=== PATIENT | male | born 1945 | race Caucasian/White ===

== ENCOUNTER 2017-04-19 12:56 | Outpatient (RCR) | payer MEDICARE, OTHER ==
[2014-10-14 09:09] VITALS: Ht 177.8 cm; Wt 104.3 kg
[2017-04-18 12:59] VITALS: BP 140/63
[2017-04-18 13:04] LABS: PLATELET COUNT, AUTOMATED 190 K/uL (150-450)
[~2017-04-19] VITALS: Ht 177.8 cm; Wt 104.3 kg
[~2017-04-19 12:56] MED LIST: ALBU8.5H IH; CEP500 PO; CIP500 PO; CIPR-212 PO; CIPR-214 PO; CIPR-344 PO; CIPR-345 PO; CYCL10TA29 PO; DOC100 PO; FAM20 PO; FAMO20TA28 PO; FLUT1AER INH; FOLI-68 PO; GLUC-111 PO; GLUC-304 PO; HYDR-318 PO; HYDR-385 PO; HYDR-389 PO; IBU600 PO; IBU800 PO; IBUP-1671 PO; IBUP-2704 PO; IBUP800T37 PO; LEVO-3 PO; LEVO100T95 PO; LOR5/325 PO; MAGN250T34 PO; NAPR220C11 PO; NAPR220C12 PO; OMEP-125 PO; OXYGENHOME INH; PHEN-530 PO; PHEN200T32 PO; PHENA200 PO; POTA-28 PO; PRED-1 PO; PRED20TA6 PO; PRED50TA22 PO; TAM4 PO; VIT B; VIT1TABL22 PO
[2017-04-19 13:04] VITALS: BP 135/74
--- NOTE | 2017-04-19 18:07 | ONCOLOGY FOLLOW UP NOTE ---
EVENT DATE: April 19, 2017 DIAGNOSES 1. Autoimmune hemolytic anemia. 2. Hypothyroidism. 3. History of prostate cancer in 2001. CHIEF COMPLAINT Patient is here today for followup of his autoimmune hemolytic anemia. HEMATOLOGY HISTORY The patient is a 71-year-old male who had a history of prostate cancer treated with external beam radiation therapy and seed implant in 2001. His PSA is currently under control. The patient had what looks like upper respiratory tract infection treated with Z-Lalita followed by Augmentin, and after that the patient started to be jaundiced. He started to have weakness, tiredness, and fatigue and worsening shortness of breath. The patient has been seen by Dr. Benito, and the patient was found to have severe anemia, with hemoglobin of 6.6 and hematocrit of 19.9 and MCV of 135.3. His white count was normal at 10.9, and the platelets were normal at 147,000. There was difficulty to find the matching blood unit for transfusion for him because of the antibodies in his serum. On interviewing the patient, he was already receiving 1 unit of blood. Investigation revealed LDH high at 2322. His total bilirubin was 4.6, and direct bilirubin was 0.6, so he has indirect hyperbilirubinemia, probably due to his hemolytic anemia. His absolute reticulocyte count was also high, consistent with autoimmune hemolytic anemia. The patient is here today for followup of his autoimmune hemolytic anemia after remission after course of prednisone therapy. The patient denies any problem except still has some weakness in the proximal muscle of the lower extremities, which is very mild and getting better. HISTORY OF PRESENT ILLNESS Patient is here today for followup of his autoimmune hemolytic anemia. Patient is totally asymptomatic, having no complaints. His energy is back now. PAST MEDICAL HISTORY 1. Prostate cancer diagnosed in 2001, status post radiation and seed implants. 2. Bladder polyp. 3. Hypertension. PAST SURGICAL HISTORY Prostate biopsy. SOCIAL HISTORY The patient is . 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 He is a smoker. 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 He has 1 or 2 drinks per night. FAMILY HISTORY Grandmother had breast cancer in her 90s. MEDICATIONS 1. Magnesium supplement 1 tablet every other day. 2. Ciprofloxacin 500 mg twice daily. 3. Levothyroxine 100 mcg daily. 4. Glucosamine and chondroitin sulfate 2 tablets daily. ALLERGIES PENICILLINS, POSSIBLE AUGMENTIN and Z-LALITA as underlying cause for his current autoimmune hemolytic anemia. REVIEW OF SYSTEMS CONSTITUTIONAL: No appetite or weight change. No fever, chills or sweating. No recent infection. HEENT: Ears: No tinnitus or hearing problem. Nose: No nasal discharge or epistaxis. Throat: No sore throat or mouth ulcers. Eyes: No diplopia or visual changes. RESPIRATORY: No shortness of breath. No cough, expectoration or hemoptysis. CARDIOVASCULAR: No chest pain, orthopnea, or paroxysmal nocturnal dyspnea (PND) . No edema. No palpitations. GASTROINTESTINAL: The patient has left upper quadrant abdominal pain for the last five days, not pleuritic in nature and intermittent and occurs multiple times per day. GENITOURINARY: No hematuria or dysuria. MUSCULOSKELETAL: He has pain in the knuckles of the right hand. NEUROLOGICAL: No tingling or numbness in the hands or feet. No headaches or convulsions. HEMATOLOGIC/LYMPHATIC: No bleeding or easy bruising. No weakness or fatigue. No enlarged lymph nodes. SKIN: No skin rash or lumps. PSYCHIATRIC: No anxiety or depression. PHYSICAL EXAMINATION GENERAL: Looks stable. Well-developed, well-nourished, and in no acute distress. VITAL SIGNS: Blood pressure 135/74, pulse 73 per minute, respirations 16 per minute, temperature 96.6, pulse ox 90% on room air. HEENT: Head: Atraumatic. No sinus tenderness to palpation. Eyes: No icterus or conjunctivitis. Mouth and throat: No oral thrush or mucositis. NECK: Supple. No cervical or supraclavicular lymphadenopathy. LUNGS: Clear to auscultation and percussion bilaterally. HEART: Regular rate and rhythm. No gallops, murmurs, clicks or rubs. ABDOMEN: Soft and lax. No tenderness. No hepatosplenomegaly. No masses. EXTREMITIES: No cyanosis, clubbing or edema. LYMPHATICS: No peripheral lymphadenopathy. NEUROLOGICAL: Conscious, alert and oriented times three. No focal motor or sensory deficits. PSYCHIATRIC: Mood and affect appear normal. SKIN: No skin rash, bruise or purpuric eruption. DIAGNOSTIC DATA CBC showed a white count of 7.9, hemoglobin 19, hematocrit 54.8, platelets 190, 000. ASSESSMENT 1. Autoimmune hemolytic anemia. Patient was initially treated with IVIG and prednisone with normalization of the CBC after that. He developed recurrence in June 2015 and the patient restarted prednisone course at that time with normalization of his H and H and resolution of his hemolytic jaundice. He received also rituximab weekly for his second relapse, for four weeks between July 26, 2015 through August 16, 2015. Patient achieved complete remission after that. His current H and H are 19 and 54.8%. I am planning to continue followup , so I will see him again in six months with CBC and I will get his CBC in three months from, and I advised the patient if he gets tired or fatigued to contact us and we will check his blood count at that time. 2. Hypothyroidism on thyroid supplement. 3. History of prostate cancer in 2011, status post external beam radiation therapy and seed implant, in remission. PLAN 1. Continue followup. 2. CBC in three months. 3. Patient to return in six months with CBC. 4. Patient is to contact us for any new concern or complaints. MTDD
== END 2017-05-03 09:14 | disposition home or self-care (01) ==
LOC: ONC 12:56
PROVIDERS: ATTEND Internal Medicine Hematology
DX: D59.1 Other autoimmune hemolytic anemias (principal); E03.9 Hypothyroidism, unspecified; Z85.46 Personal history of malignant neoplasm of prostate; F17.210 Nicotine dependence, cigarettes, uncomplicated; R53.1 Weakness; I10 Essential (primary) hypertension; Z79.899 Other long term (current) drug therapy; R10.12 Left upper quadrant pain; M79.644 Pain in right finger(s); Z92.3 Personal history of irradiation
CPT/HCPCS: 36415; 85025; G0463; 99212

== ENCOUNTER 2017-09-23 13:15 | Outpatient (RCR) | payer MEDICARE, OTHER ==
[2014-10-14 09:09] VITALS: BMI 31.0
[2017-06-28 08:59] LABS: PLATELET COUNT, AUTOMATED 180 K/uL (150-450)
[2017-06-28 12:45] VITALS: BP 124/84
[2017-08-02 09:18] VITALS: BP 139/78
[2017-08-02 09:21] LABS: PLATELET COUNT, AUTOMATED 163 K/uL (150-450)
[2017-09-23 14:48] VITALS: BP 131/84
[2017-09-23 14:57] LABS: PLATELET COUNT, AUTOMATED 164 K/uL (150-450)
== END 2017-09-24 ==
LOC: SPU 13:15
PROVIDERS: ATTEND Internal Medicine Hematology
DX: D58.9 Hereditary hemolytic anemia, unspecified (principal)
CPT/HCPCS: 36415; 85025

== ENCOUNTER 2017-09-26 13:20 | Outpatient (RCR) | payer MEDICARE, OTHER ==
[2014-10-14 09:09] VITALS: Wt 104.5 kg
[2017-09-26 13:27] VITALS: BP 122/68
--- NOTE | 2017-09-26 17:21 | ONCOLOGY FOLLOW UP NOTE ---
EVENT DATE: September 26, 2017 DIAGNOSES 1. Autoimmune hemolytic anemia. 2. Hypothyroidism. 3. History of prostate cancer in 2001. CHIEF COMPLAINT Patient is here today for followup of his autoimmune hemolytic anemia. HEMATOLOGY HISTORY The patient is a 72-year-old male who had a history of prostate cancer treated with external beam radiation therapy and seed implant in 2001. His PSA is currently under control. The patient had what looks like upper respiratory tract infection treated with Z-Lalita followed by Augmentin, and after that the patient started to be jaundiced. He started to have weakness, tiredness, and fatigue and worsening shortness of breath. The patient has been seen by Dr. Benito, and the patient was found to have severe anemia, with hemoglobin of 6.6 and hematocrit of 19.9 and MCV of 135.3. His white count was normal at 10.9, and the platelets were normal at 147,000. There was difficulty to find the matching blood unit for transfusion for him because of the antibodies in his serum. On interviewing the patient, he was already receiving 1 unit of blood. Investigation revealed LDH high at 2322. His total bilirubin was 4.6, and direct bilirubin was 0.6, so he has indirect hyperbilirubinemia, probably due to his hemolytic anemia. His absolute reticulocyte count was also high, consistent with autoimmune hemolytic anemia. The patient is here today for followup of his autoimmune hemolytic anemia after remission after course of prednisone therapy. The patient denies any problem except still has some weakness in the proximal muscle of the lower extremities, which is very mild and getting better. HISTORY OF PRESENT ILLNESS Patient is here today for followup of his autoimmune hemolytic anemia. He is doing very well currently except for having some soreness in the back of his right knee, and has some prostatic symptoms. PAST MEDICAL HISTORY 1. Prostate cancer diagnosed in 2001, status post radiation and seed implants. 2. Bladder polyp. 3. Hypertension. PAST SURGICAL HISTORY Prostate biopsy. SOCIAL HISTORY The patient is . 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 He is a smoker. 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 He has 1 or 2 drinks per night. FAMILY HISTORY Grandmother had breast cancer in her 90s. MEDICATIONS 1. Magnesium supplement 1 tablet every other day. 2. Ciprofloxacin 500 mg twice daily. 3. Levothyroxine 100 mcg daily. 4. Glucosamine and chondroitin sulfate 2 tablets daily. ALLERGIES PENICILLINS, POSSIBLE AUGMENTIN and Z-LALITA as underlying cause for his current autoimmune hemolytic anemia. REVIEW OF SYSTEMS CONSTITUTIONAL: No appetite or weight change. No fever, chills or sweating. No recent infection. HEENT: Ears: No tinnitus or hearing problem. Nose: No nasal discharge or epistaxis. Throat: No sore throat or mouth ulcers. Eyes: No diplopia or visual changes. RESPIRATORY: No shortness of breath. No cough, expectoration or hemoptysis. CARDIOVASCULAR: No chest pain, orthopnea, or paroxysmal nocturnal dyspnea (PND) . No edema. No palpitations. GASTROINTESTINAL: The patient has left upper quadrant abdominal pain for the last five days, not pleuritic in nature and intermittent and occurs multiple times per day. GENITOURINARY: No hematuria or dysuria. He has some prostatic symptoms. Patient is going to see his urologist. MUSCULOSKELETAL: He has soreness in the back of his right knee. NEUROLOGICAL: No tingling or numbness in the hands or feet. No headaches or convulsions. HEMATOLOGIC/LYMPHATIC: No bleeding or easy bruising. No weakness or fatigue. No enlarged lymph nodes. SKIN: No skin rash or lumps. PSYCHIATRIC: No anxiety or depression. PHYSICAL EXAMINATION GENERAL: Looks stable. Well-developed, well-nourished, and in no acute distress. VITAL SIGNS: Blood pressure 122/68, pulse 73 per minute, respirations 16 per minute, temperature 97.1, pulse ox 91% on room air. HEENT: Head: Atraumatic. No sinus tenderness to palpation. Eyes: No icterus or conjunctivitis. Mouth and throat: No oral thrush or mucositis. NECK: Supple. No cervical or supraclavicular lymphadenopathy. LUNGS: Clear to auscultation and percussion bilaterally. HEART: Regular rate and rhythm. No gallops, murmurs, clicks or rubs. ABDOMEN: Soft and lax. No tenderness. No hepatosplenomegaly. No masses. EXTREMITIES: No cyanosis, clubbing or edema. LYMPHATICS: No peripheral lymphadenopathy. NEUROLOGICAL: Conscious, alert and oriented times three. No focal motor or sensory deficits. PSYCHIATRIC: Mood and affect appear normal. SKIN: No skin rash, bruise or purpuric eruption. DIAGNOSTIC DATA CBC showed a white count of 7.3, hemoglobin 197.5 hematocrit 49.3, platelets 164 ,000. ASSESSMENT 1. Autoimmune hemolytic anemia. Patient was initially treated with IVIG and prednisone with normalization of the CBC after that. He developed recurrence in June 2015 and the patient restarted prednisone course at that time with normalization of his H and H and resolution of his hemolytic jaundice. He received also rituximab weekly for his second relapse, for four weeks between July 26, 2015 through August 16, 2015. Patient after that achieved complete remission. His current H and H are 17.5 and 49.3%. I am planning to continue followup. I am planning to see him again in six months with CBC. I advised the patient he has the symptoms of anemia like before to contact us and to check his count at that time. Generally speaking he is doing very well currently. 2. Hypothyroidism on thyroid supplement. 3. History of prostate cancer in 2011, status post external beam radiation therapy and seed implant, in remission. PLAN 1. Continue followup. 2. Patient to return in six months with CBC. 3. Patient is to contact us for any new concern or complaints. MANAS
== END 2017-09-27 10:06 | disposition home or self-care (01) ==
LOC: ONC 13:20
PROVIDERS: ATTEND Internal Medicine Hematology
DX: D59.1 Other autoimmune hemolytic anemias (principal); E03.9 Hypothyroidism, unspecified; Z79.899 Other long term (current) drug therapy; Z85.46 Personal history of malignant neoplasm of prostate; Z92.3 Personal history of irradiation; F17.210 Nicotine dependence, cigarettes, uncomplicated
CPT/HCPCS: 99212

== ENCOUNTER 2017-10-28 00:47 | Day surgery (SDC) | payer MEDICARE, OTHER ==
[2014-10-14 09:09] VITALS: Ht 179.1 cm; Wt 100.7 kg
[~2017-10-28] VITALS: Ht 179.1 cm; Wt 100.7 kg
[2017-10-28 07:27] VITALS: BP 134/76
[2017-10-28] MEDS ORDERED: LIDOCAINE/SOD BICARB 8.4% SYR ID ONE (07:50)
[2017-10-28] MEDS ORDERED: NORMOSOL R SOLN(*) 1000 ML BAG 1,000 ML IV PRN (07:50)
[2017-10-28] MEDS ORDERED: FAMOTIDINE 20 MG TAB PO ONE (07:50)
[2017-10-28] MEDS ORDERED: MIDAZOLAM 2 MG/2 ML VIAL IVP PRN (07:50)
[2017-10-28] MEDS ORDERED: LEVOFLOXACIN/D5W*500 MG/100 ML 100 ML IVPB ONE (08:00)
[2017-10-28] MEDS ORDERED: PROPOFOL EMUL(*) 10MG/ML 20 ML 20 ML ONE (08:05)
[2017-10-28] MEDS ORDERED: DEXAMETHASONE SOD PHOS 10MG/ML ONE (08:05)
[2017-10-28] MEDS ORDERED: LIDOCAINE MPF 1% 5 ML VIAL ONE (08:05)
[2017-10-28] MEDS ORDERED: ONDANSETRON 4 MG/2 ML VIAL ONE (08:05)
[2017-10-28] MEDS ORDERED: fentaNYL CITR 100 MCG/2 ML AMP ONE (08:05)
[2017-10-28] MEDS ORDERED: MIDAZOLAM 1 MG/1 ML 10 ML ONE (09:00)
[2017-10-28] MEDS ORDERED: GENTAMICIN 80 MG/2 ML VIAL ONE (09:42)
[2017-10-28] MEDS ORDERED: HYDR-4308 PO (10:39)
[2017-10-28] MEDS ORDERED: PHEN200T32 PO (10:40)
[2017-10-28] MEDS ORDERED: FAMO20TA28 PO (10:40)
[2017-10-28] MEDS ORDERED: CIPR-214 PO (10:41)
[2017-10-28 10:50] VITALS: BP 129/67
[2017-10-28 11:22] VITALS: BP 135/86
[2017-10-28 11:23] VITALS: BP 122/78
--- NOTE | 2017-10-28 13:02 | OPERATIVE REPORT 1 ---
EVENT DATE: October 28, 2017 SURGEON: Major Petty MD ANESTHESIOLOGIST: Dharmesh Novoa MD ANESTHESIA: General PREOPERATIVE DIAGNOSIS 1. Difficulty with micturition, slow, difficult. 2. Probable severe urethral stricture. POSTOPERATIVE DIAGNOSIS 1. Difficulty with micturition, slow, difficult. 2. Severe urethral stricture. PROCEDURE PERFORMED 1. Cystourethroscopy. 2. Dilation of severe urethral stricture with filiforms and followers. 3. Hydrodistention of the bladder. 4. Urethral Sheppard placement over a guidewire. DESCRIPTION OF PROCEDURE Under general anesthetic, the patient was prepped and draped in the extended lithotomy position. The 17 panendoscope admitted through the urethra. The pinhole stricture was noted in the most proximal bulbous urethra. A filiform was passed, and the stricture dilated to 24 [place] with ease. There was minimal bleeding. The 17 panendoscope admitted easily through the urethra through the stricture and into the bladder. The bladder showed 4+ trabeculation. 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 The prostate showed small lateral lobes and a bladder neck contracture. Verumontanum was in the area of the stricture that extended from the most proximal bulbous urethra through the membranous urethra. The bladder filled under gravity flow and measured to a total of approximately 550 mL. On drainage of the bladder, there was no bloody drainage. The last few examinations have shown less inflammation than previous examinations. The Sheppard was not able to be placed with a catheter guide. A guide wire was placed, and the Sheppard passed over the guide wire without any difficulty. The patient tolerated the procedure satisfactorily and returned to the recovery room in satisfactory condition. INDICATION FOR PROCEDURE This is a 72-year-old white male complaining of prostate cancer treated with radiation therapy. The patient has been treated for a stricture of the extreme proximal bulbous urethra that extends into the membranous urethra and apical area of the prostate for several years. He responds to urethral dilation that last for a period of approximately six months. Patient has had minimal bleeding for several years and as compared to previous evaluations and treatment. DISCHARGE INSTRUCTIONS Patient will be ready for discharged home when alert and functional, to force fluids 2 L per day. Activities are as tolerated. He is to continue his usual medications. Copy of instructions were given to the patient. Plan follow up this coming Wednesday, November 01, 2017. He is to call for an appointment. He was given my personal number to call me if he has any issues. He was sent home with a bedside drainage bag, and will be sent home with a leg bag too. Patient has been instructed to remove the Sheppard this coming Saturday , October 30, 2017. Patient will be discharged on antibiotic, Cipro, and Pepcid, Motrin and Cope therapy. MTDD
== END 2017-10-28 10:50 | disposition home or self-care (01) ==
LOC: OR 00:47
DX: R39.198 Other difficulties with micturition (principal); N35.9 Urethral stricture, unspecified
CPT/HCPCS: 52281; 81001; 87088; A9270; C1769; J1100; J1580; J1956; J2001; J2250; J2405; J2704; J3010

== ENCOUNTER → 2018-02-11 | Outpatient (CLI) | payer MEDICARE, OTHER ==
[2014-10-14 09:09] VITALS: BMI 31.0
[~2018-02-11] MED LIST changes: +FLU180SY11 IM; +HYDR-654 PO; +ROSU5TAB3 PO; +VARI50KI IM
--- NOTE | 2018-02-11 11:45 | RADIOLOGY IMAGING REPORT ---
FACILITY: [facility] [place] PATIENT NAME: Kaley Eaton : 1945 MR: [id number] V: [id number] EXAM DATE: ORDERING PHYSICIAN: MARINA VAUGHN TECHNOLOG[place] [facility] [place] Kaley E[place] : 1945 Visit/Account:[id number] Date of Sevice: 02/11/2018 Lumbar spine 3 views: HISTORY: Low back pain, sciatic pain worse down right leg. COMPARISON: None. FINDINGS: There is mild lumbar scoliosis convex to the right. There is mild to moderate disc space n arrowing at T12-L1, L2-3, L3-4, L4-5 and L5-S1. Osteophytes are present at all levels. There is no spondylolisthesis. Facet degenerative changes present at L5-S1. Vertebral body height is well maint ained. No focal compression fracture. Bones are osteopenic. No lytic or sclerotic lesion identified. Atherosclerotic convocations present in the aorta. Prostate radiation implants noted. IMPRESSION: 1. Mild to moderate spondylitic changes in the lumbar spine as described above. Facet degenerative changes present at L5-S1. 2. No spondylolisthesis. 3. No focal compression fracture. Report Dictated By: Radha Anguiano MD at 02/11/2018 11:32 AM Report E-Signed By: Radha Anguiano MD at 02/11/2018 11:41 AM WSN:[id number]
== END ==
LOC: RAD 09:05
PROVIDERS: ATTEND Nurse Practitioner Family
DX: M47.817 Spondylosis without myelopathy or radiculopathy, lumbosacral region (principal); M51.36 Other intervertebral disc degeneration, lumbar region; M54.30 Sciatica, unspecified side
CPT/HCPCS: 72100

== ENCOUNTER → 2018-02-28 | Outpatient (CLI) | payer MEDICARE, OTHER ==
[2014-10-14 09:09] VITALS: BMI 31.0
--- NOTE | 2018-02-28 15:14 | RADIOLOGY IMAGING REPORT ---
FACILITY: [facility] PATIENT NAME: Kaley Eaton : 1945 MR: [id number] V: [id number] EXAM DATE: ORDERING PHYSICIAN: [facility] TECHNOLOGIST: Location: [facility] - [place], [place] Patient: Kaley Eaton : 1945 Visit/Account:[id number] Date of Sevice: 02/28/2018 SHOULDER LEFT W/O CONTRAST HISTORY: Shoulder pain COMPARISON: None TECHNIQUE: Multiplanar/multisequence was obtained through the left shoulder without contrast. Contrast: None FINDINGS: Rotator cuff: Mild tendinosis of the supraspinatus tendon. Mild tendinosis of the infraspinatus tendo n with mild edema at the myotendinous junction. Teres minor tendon is intact. Subscapularis tendon is intact. No full-thickness tear of the rotator cuff. No tendinous retraction or muscular atrophy. Subacromial/subdeltoid fluid: Trace amount Joint effusion: None significant Biceps tendon: Resides within the bicipital groove and is intact to the labrum without signal abnorma lity. Glenohumeral joint and labrum: Severe osteoarthritis at the glenohumeral joint with grade IV chondrom alacia at both sides of the joint with extensive subchondral cystic change within the glenoid, especi ally posteriorly. Extensive degenerative labral tearing. AC joint : Mild proliferative changes with inferior bony spurs. Small amount of fluid at the AC inter allan. No significant lateral acromial downsloping. Acromium is type II. Bone marrow: Normal Soft tissues: Normal Other findings: None significant IMPRESSION: 1. 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 Extensive degenerative labral tearing. 2. Mild tendinosis of the supraspinatus and infraspinatus tendons. No full-thickness tear of the rota tor cuff. 3. Mild proliferative changes at the AC joint with inferior bony spurs. Report Dictated By: Brian King MD at 02/28/2018 2:53 PM Report E-Signed By: Brian King MD at 02/28/2018 3:10 PM WSN:[id number]
== END ==
LOC: MRI 04:30
PROVIDERS: ATTEND Family Medicine Sports Medicine
DX: M19.012 Primary osteoarthritis, left shoulder (principal); M94.212 Chondromalacia, left shoulder

== ENCOUNTER 2018-04-03 12:47 | Outpatient (RCR) | payer MEDICARE, OTHER ==
[2014-10-14 09:09] VITALS: BMI 31.0
[2018-04-03 13:26] LABS: PLATELET COUNT, AUTOMATED 159 K/uL (150-450)
--- NOTE | 2018-04-03 20:06 | [facility] ONCOLOGY NOTE ---
EVENT DATE: April 03, 2018 DIAGNOSES 1. Autoimmune hemolytic anemia. 2. Hypothyroidism. 3. History of prostate cancer in 2001. CHIEF COMPLAINT Patient is here today for followup of his autoimmune hemolytic anemia. HEMATOLOGY HISTORY The patient is a 72-year-old male who had a history of prostate cancer, treated with external beam radiation therapy and seed implant in 2001. His PSA is currently under control. The patient had what looks like upper respiratory tract infection, treated with Z-Lalita, followed by Augmentin, and after that, the patient started to be jaundiced. He started to have weakness, tiredness, fatigue, and worsening shortness of breath. The patient has been seen by Dr. Benito, and the patient was found to have severe anemia with hemoglobin of 6.6, hematocrit of 19.9, and MCV of 135.3. His white count was normal at 10.9, and the platelets were normal at 147,000. There was difficulty to find the matching blood unit for transfusion for him because of the antibodies in his serum. On interviewing the patient, he was already receiving 1 unit of blood. Investigation revealed LDH high at 2322. His total bilirubin was 4.6, and direct bilirubin was 0.6, so he has indirect hyperbilirubinemia, probably due to his hemolytic anemia. His absolute reticulocyte count was also high, consistent with autoimmune hemolytic anemia. The patient is here today for followup of his autoimmune hemolytic anemia after remission after course of prednisone therapy. The patient denies any problem except he still has some weakness in the proximal muscles of the lower extremities, which is very mild and getting better. HISTORY OF PRESENT ILLNESS Patient is here today for followup of his autoimmune hemolytic anemia. He is doing very well currently except for seldom epistaxis from dry weather. PAST MEDICAL HISTORY 1. Prostate cancer diagnosed in 2001, status post radiation and seed implants. 2. Bladder polyp. 3. Hypertension. PAST SURGICAL HISTORY Prostate biopsy. SOCIAL HISTORY The patient is . He owns his own business. He is a smoker. 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 He has one or two drinks per night. FAMILY HISTORY Grandmother had breast cancer in her 90s. MEDICATIONS 1. Magnesium supplement one tablet every other day. 2. Ciprofloxacin 500 mg twice daily. 3. Levothyroxine 100 mcg daily. 4. Glucosamine and chondroitin sulfate two tablets daily. ALLERGIES PENICILLINS, POSSIBLE AUGMENTIN, and Z-LALITA as underlying cause for his current autoimmune hemolytic anemia. REVIEW OF SYSTEMS CONSTITUTIONAL: No appetite or weight change. No fever, chills, or sweating. No recent infection. HEENT: Ears: No tinnitus or hearing problem. Nose: He has occasional epistaxis. Throat: No sore throat or mouth ulcers. Eyes: No diplopia or visual changes. RESPIRATORY: No shortness of breath. No cough, expectoration, or hemoptysis. CARDIOVASCULAR: No chest pain, orthopnea, or paroxysmal nocturnal dyspnea (PND). No edema. No palpitations. GASTROINTESTINAL: No nausea or vomiting. No diarrhea or constipation. No change in bowel movements. No heartburn or swallowing difficulties. No abdominal pain. No jaundice. No hematemesis, melena, or rectal bleeding. GENITOURINARY: No hematuria or dysuria. MUSCULOSKELETAL: No pain in the muscles, joints, or bones. NEUROLOGICAL: No tingling or numbness in the hands or feet. No headaches or convulsions. HEMATOLOGIC/LYMPHATIC: No bleeding or easy bruising. No weakness or fatigue. No enlarged lymph nodes. SKIN: No skin rash or lumps. PSYCHIATRIC: No anxiety or depression. PHYSICAL EXAMINATION GENERAL: Looks stable. Well developed, well nourished, and in no acute distress. VITAL SIGNS: Blood pressure 144/71, pulse 70 per minute, respirations 16 per minute, temperature 98.3, pulse ox 91% on room air. HEENT: Head: Atraumatic. No sinus tenderness to palpation. Eyes: No icterus or conjunctivitis. Mouth and Throat: No oral thrush or mucositis. NECK: Supple. No cervical or supraclavicular lymphadenopathy. LUNGS: Clear to auscultation and percussion bilaterally. HEART: Regular rate and rhythm. No gallops, murmurs, clicks, or rubs. ABDOMEN: Soft and lax. No tenderness. No hepatosplenomegaly. No masses. EXTREMITIES: No cyanosis, clubbing, or edema. LYMPHATICS: No peripheral lymphadenopathy. NEUROLOGICAL: Conscious, alert, and oriented times three. No focal motor or sensory deficits. PSYCHIATRIC: Mood and affect appear normal. SKIN: No skin rash, bruise, or purpuric eruption. DIAGNOSTIC DATA CBC showed white count 7.4, hemoglobin 17.8, hematocrit 51.8, platelets 159,000. ASSESSMENT 1. Autoimmune hemolytic anemia. Patient was initially treated with IVIG and prednisone with normalization of his CBC after that. He developed recurrence in June 2015, and the patient restarted prednisone course at that time with normalization of his H and H and resolution of his hemolytic jaundice. He received also rituximab weekly for his second relapse for four weeks between July 26, 2015, through August 16, 2015, and he was in complete remission since then. His current H and H showed hemoglobin 17.8 and hematocrit 51.8%. I plan to continue followup. I will see him again in six months with CBC, and patient was advised to report any fatigue or tiredness. 2. Hypothyroidism, on thyroid supplement. 3. History of prostate cancer in 2011, status post external beam radiation therapy and seed implant, in remission. PLAN 1. Continue followup. 2. Patient to return in six months with CBC. 3. Patient is to contact us for any new concern or complaints. LAUREND
== END 2018-05-05 15:38 | disposition home or self-care (01) ==
LOC: SPU 12:47
PROVIDERS: ATTEND Internal Medicine Hematology
DX: D58.9 Hereditary hemolytic anemia, unspecified (principal); E03.9 Hypothyroidism, unspecified; Z85.46 Personal history of malignant neoplasm of prostate; Z92.3 Personal history of irradiation; I10 Essential (primary) hypertension; F17.210 Nicotine dependence, cigarettes, uncomplicated
CPT/HCPCS: 82465; 82607; 85025; G0463; 99212